=== PATIENT | male | born 1975 | race Caucasian/White ===

== ENCOUNTER 2022-07-08 07:23 | Day surgery (SDC) | payer BC, SELFPAY ==
--- NOTE | 2022-07-07 20:25 | PDOC.DSDIS_ITS ---
Date of service: 07/08/22 Time of Service: 09:35 Discharge Plan Disposition Patient Disposition: Home Condition: Good Discharge Details Reason For Visit: Umbilical herniorraphy Attending Provider: Bertram Gomez Primary Care Provider: Wil Solano Home Meds and New Rx's Prescriptions: New tramadol 50 mg tablet 50 mg PO Q8H PRN (Reason: pain) Qty: 9 0RF Rx Instructions: Take 1 tablet by mouth up to every 8 hours as needed for severe pain. You cannot drive while using this medication. Be very careful as this medication is addictive. Continued ibuprofen 200 mg tablet 200 mg PO Q6H PRN lansoprazole [Prevacid] 30 mg capsule,delayed release(DR/EC) 30 mg PO DAILY epinephrine 0.3 mg/0.3 mL auto-injector 0.3 mg IM ONCE Rx Instructions: as a single dose; may repeat once Discharge Instructions Instructions: Umbilical Hernia Repair (GEN) Additional Instructions: 1. Resume all of your medications. 2. Okay to use tylenol and ibuprofen over the counter as needed. Use [] as needed for severe pain. 3. Heating pads and cold packs are fine to use for pain. 4. Leave bandage in place for 24 hours, then remove. 5. Shower with warm soapy water. Pat dry. Use a bandaid if needed to protect your clothing. 6. No soaking or tub baths until I see you in the office. 7. No heavy lifting until I see you in the office. 8. Call the office (or go directly to the emergency room after hours) if you notice any of the following: Develop chills (warm to touch), or if you have a thermometer and your temperature is above 101 Difficulty breathing or difficultly swallowing Persistent vomiting Any bleeding ? exceeding one tablespoon 9. Call your physician if the site where your intravenous was started becomes red, swollen, painful, and warm to touch. Referrals: Bertram Gomez MD [ [facility] STAFF PHYSICIAN] - Activity:: no heavy lifting Remove Dressings/Wound Care:: 24 hours Shower/Bathe:: 24 hours Diet:: As Tolerated Discharge Orders Discharge Orders: Discharge Order (Routine); Ordered 07/07/22 Ordered By: Bertram Gomez DS: Diagnosis Discharge Diagnosis (1) Umbilical hernia: Status: Acute Asessment and Plan: We repaired the hernia with a permanent implantable mesh. You should follow the activity instructions below, and try to minimize vigorous and heavy lifting, as well as traumatic twisting movements while carrying objects.
--- NOTE | 2022-07-07 20:28 | ROE_ITS ---
Date of service: 07/08/22 Time of Service: 09:39 Operative Note Operative Note DATE OF PROCEDURE: 07/08/22 PRE-OP DIAGNOSIS: Umbilical hernia POST-OP DIAGNOSIS: other (Ventral hernia) PROCEDURE: Umbilical herniorraphy with mesh SURGEON: Bertram Gomez Refer to Anesthesia Record ESTIMATED BLOOD LOSS: 50 PATHOLOGY: none sent COMPLICATIONS: None Patient was transported to: PACU Patient's condition: stable Implants: Ventralex ST hernia patch Indications: Bertram is a 46-year-old male with a painful umbilical hernia. Findings: Supraumbilical ventral hernia Procedure Description: After the patient was induced with general anesthesia, and bilateral rectus sheath blocks were performed with ultrasound guidance by their service, I began by prepping and draping the abdomen in the usual fashion. With the patient asleep, it was easier to perform a more detailed examination. It actually feels like this is arising from the supra umbilical midline rectus sheath, rather than the true umbilical ring. I used local anesthetic to establish a field block at the skin level. I began with a midline longitudinal incision just above the umbilicus. I dissected the hernia sac down to the fascia. As previously mentioned, it did appear to arise from a hernia defect slightly above the [place] umbilical ring. I was able to reduce the hernia sac back into the peritoneum. I dissected the fascial edge clean for many adhesions. I was able to sweep the underside of the fascia with my finger. It felt free of any other adhesions. I could palpate the underside of the umbilical ring. Again, this was closed, and there was no evidence of hernia here. Next, I delivered a small Ventralex hernia patch into the subfascial position. I fixed the tabs to the overlying fascia with interrupted stitches. Next, I obliterated the fascial defect with interrupted Prolenes. I irrigated the surgical field. It was hemostatic. Next, I closed the subcutaneous tissue with interrupted Vicryl's. I did pexied the underside of the umbilicus a bit cephalad to help with cosmesis. I closed the skin with interrupted Monocryl stitches, and I applied bandages.
[2022-07-08] VITALS (7 sets, daily range): BP systolic 100–117; BP diastolic 62–84; PULSE 56–66; RESP 10–16; TEMP 36.1–36.5; O2SAT 98–100; BMI 26.3
[2022-07-08] MEDS: Gabapentin 300 MG CAP 600 MG PO (08:01)
[2022-07-08] MEDS: Celecoxib 200 MG CAP PO (08:01)
[2022-07-08] MEDS: Acetaminophen 500 MG TAB 1000 MG PO (08:01)
--- NOTE | 2022-07-08 08:08 | W.ANESPRE ---
General Info Date of Service Date Performed: 07/08/22 Height: 5 ft 9 in Weight: 80.9 kg Body Mass Index (BMI): 26.3 Surgical Procedure: Operation Date: 07/08/22 08:40 Proposed Procedure Side Surgeon p Herniorrhaphy Umbilical w/Mesh Bertram Gomez MD Meds Allergies and Home Medications Allergies Allergy/AdvReac Type Severity Reaction Status Date / Time bees Allergy Severe Anaphylaxis Uncoded 06/25/22 13:17 Home Medication Medication Instructions Recorded epinephrine 0.3 mg/0.3 mL 0.3 mg IM ONCE 02/17/22 injection, auto-injector ibuprofen 200 mg tablet 200 mg PO Q6H PRN 02/25/22 lansoprazole 30 mg capsule,delayed 30 mg PO DAILY 02/25/22 release (Prevacid) Current Visit Medications: Current Medications Generic Name Dose Route Start Last Admin Trade Name Freq PRN Reason Stop Dose Admin Acetaminophen 1,000 mg 07/08/22 06:00 07/08/22 08:01 Acetaminophen 500 Mg Tab PO 08/03/22 23:59 1,000 mg PREOP JOSEPH Administration Celecoxib 200 mg 07/08/22 06:00 07/08/22 08:01 Celecoxib 200 Mg Cap PO 08/03/22 23:59 200 mg PREOP JOSEPH Administration Gabapentin 600 mg 07/08/22 06:00 07/08/22 08:01 Gabapentin 300 Mg Cap PO 08/03/22 23:59 600 mg PREOP JOSEPH Administration Ringer's Solution 1,000 mls @ 80 mls/hr 07/08/22 06:00 IV 08/03/22 23:59 INFUSION JOSEPH Cefazolin Sodium/Dextrose 2 gm in 50 mls @ 100 mls/hr 07/08/22 06:00 Ancef Duplex IVPB 08/03/22 23:59 PREOP JOSEPH IV Miscellaneous Supplies 1 each 07/08/22 06:00 Iv Access IV 08/03/22 23:59 DIRECTED JOSEPH Morphine Sulfate 2 mg 07/07/22 20:29 Morphine 4 Mg/Ml Syr IVP Q1H PRN PRN Sodium Chloride 0 ml 07/08/22 06:00 Normal Saline Flush 10 Ml Syr IV 08/03/22 23:59 PRN PRN Sodium Chloride 0 ml 07/08/22 06:00 Normal Saline 10 Ml Vial IJ 08/03/22 23:59 DIRECTED PRN Sterile Water 0 ml 07/08/22 06:00 Water,Injection,Sterile 10 Ml Vial IJ 08/03/22 23:59 DIRECTED PRN Tramadol HCl 50 mg 07/07/22 20:29 Tramadol 50 Mg Tab PO Q6H PRN PRN Pain PFSH Active Problems Active Problems: Problem Status Onset Code Umbilical hernia K42.9 Medical History Medical History GERD (gastroesophageal reflux disease) Tobacco use Medical History Comments:: pt smokes @ 10 cigarettes a day Surgical History Surgical History History of recent dental procedure History of tonsillectomy Tobacco Smoking/Tobacco Use Status: Current every day Tobacco Type: cigarettes Smoking packs per day: 0.5 Smoking cigarettes per day: 10.0 Years smoked: 25 Smoking pack-years: 12.50 Alcohol Alcohol Intake: current Alcohol intake frequency: 0-2 drinks per day Alcohol type: beer Substance Use Substance use: Rarely Substance use type: marijuana Vital Signs and Lab Results Vital Signs Most Recent Vital Signs in EMR: Most Recent Vital Signs Temp Pulse Resp BP Pulse Ox 36.5 C 64 16 117/84 100 07/08/22 07:55 07/08/22 07:55 07/08/22 07:55 07/08/22 07:55 07/08/22 07:55 Lab Results Blood Type / Crossmatch: No Data to Display Complete Blood Count: No Data to Display Complete Metabolic Panel: No Data to Display Liver Function Panel: No Data to Display Coagulation Panel: No Data to Display Cardiac Panel: No Data to Display Arterial Blood Gas: No Data to Display Venous Blood Gas: No Data to Display Pancreas Panel: No Data to Display Thyroid Panel: No Data to Display Infectious Disease: No Data to Display Blood Cultures: No Data to Display Toxicology Panel: No Data to Display Anesthesia Assessment and Plan Anesthesia History Personal History: No History of General Anesthesia Family History: No Family History of Anesthesia Complications Exercise Tolerance Exercise Tolerance: Metabolic Equivalents>4 Pertinent Negatives Pertinent Negatives: No Symptoms of GERD (Controlled on medication), No Major Cardiovascular Symptoms or Complaints and No Major Pulmonary Symptoms or Complaints Cardiac & Pulmonary Exam Cardiac Exam: Normal S1/S2 Heart Sounds Pulmonary Exam: Clear Bilateral Breath Sounds Implantable Cardiac Device Does patient have a Pacemaker or an ICD?: No Airway Exam Known Difficult Airway: No Mallampati Class: 1 Mouth Opening: Normal (> 3cm) Thyromental Distance: Greater than 3 cm Facial Hair: Full [place] Neck Range of Motion: Full ROM Neck Circumference: Normal Teeth Condition: Normal Dentition ASA Classification ASA Score: ASA 2 Emergency Case?: No NPO Status NPO Status: NPO Clears >2 hours, Solids >8 hours Anesthesia Plan Resuscitation Status: Full Code Anesthesia Technique: General Anesthesia Airway Planned: LMA Pain Management: Surgeon and patient request nerve block Monitors Used: Standard Monitors and SedLine
[2022-07-08] MEDS: Lactated Ringers 1,000 ML 80 ML IV (08:21)
[2022-07-08] MEDS: ceFAZolin 2 GM/50 ML BAG IVPB (08:39)
--- NOTE | 2022-07-08 09:08 | W.ANESNERVE ---
Nerve Block Single Injection Procedure Date and Time Date Performed: 07/08/22 Procedure Start: 08:52 Location Where Procedure Performed Procedure Location: Operating Room Procedure Stop: 08:58 Reason Performed: Postoperative Analgesia Requesting Provider: Bertram Gomez Timeout Performed Timeout Performed: Yes Monitoring Used ECG, Blood Pressure, SpO2, ETCO2 and See EMR for corresponding vital signs Sterility Sterility: Hand Hygiene, Surgical Cap, Surgical Mask, Sterile Gloves and Chlorhexidine Sedation Given During Procedure Sedation Given (Indicate Dose Given): No Sedation given Patient Mental Status Patient Mental Status: Performed under general anesthesia Nerve Block 1st Nerve Block: Laterality: Bilateral Block Type: Rectus Sheath (Bilateral) Ultrasound Image Saved?: Yes Needle / Catheter Used: 100mm SonoPlex II Local Anesthetic Bolus (Indicate Dose Given): Lidocaine used for local infiltration of skin, Injected in 3-5ml increments after negative blood aspiration, Half of Total block solution given into each side and Bupivacaine 0.375% Dose:: 20 Additives (Indicate Dose Given): None Ultrasound: Sterile probe cover and gel used (Image saved and sent to PACS) Nerve Stimulator: Not Used Paresthesia: None Post Procedure Pain score (0-10): 0 Procedure Tolerated: No Complications and Patient tolerated well Procedure Outcome: Successful Performed By: Nely Rodriguez Supervised By: Palmer Cheek
[2022-07-08] MEDS: Bupivacaine 0.25% Pres-Free 30 ML VIAL ×2 (09:17→09:23)
--- NOTE | 2022-07-08 11:50 | W.ANESPOSTOP ---
Postoperative Evaluation Date, Time and Location Date Performed: 07/08/22 Time Performed: 10:45 Patient Location: Day Surgery Unit Vital Signs Most Recent Imported Vital Signs: Most Recent Vital Signs Temp Pulse Resp BP Pulse Ox 36.2 C L 56 L 16 115/79 99 07/08/22 10:48 07/08/22 10:48 07/08/22 10:48 07/08/22 10:48 07/08/22 10:48 Pain Score Most Recent Pain Score: Most Recent Pain Score Pain Level 0 07/08/22 10:48 Assessment Mental Status: Awake (Alert & Oriented to Patient Baseline) Airway and Respiratory Function: Patent airway with normal (patient baseline) respiratory exam Cardiovascular Function: Hemodynamically Stable Hydration Status: Adequately Hydrated Nausea & Vomiting: No Nausea or Vomiting Pain: Pt. Denies Any Pain Peripheral Nerve Block: Regional nerve block not resolved at time of post operative discharge
== END 2022-07-08 11:05 | disposition home or self-care (01) ==
PROVIDERS: PCP Family Medicine; Visit Provider Surgery
PROC: (CPT 49591; principal; 2022-07-08 08:30)
DX: K43.9 Ventral hernia without obstruction or gangrene (principal)
CPT/HCPCS: 49591; 76942; C1781; J0690; J1100; J1885; J2250; J2405; J2704

== ENCOUNTER 2022-12-12 12:01 | Outpatient (CLI) | payer BC, SELFPAY ==
--- NOTE | 2022-12-12 | DI.RAD_ITS ---
Exam(s) XR THUMB RT EXAM: XR THUMB RT CLINICAL HISTORY: RT THUMB PAIN, [id number]. TECHNIQUE: 2D digital imaging was performed of the right finger. Three views were obtained. PA/AP, oblique, and lateral views were obtained. COMPARISON: No exams were available for comparison FINDINGS: BONES: No acute fracture is present. No bony destructive lesion is seen. JOINTS: No dislocation present. SOFT TISSUE: There tiny density seen adjacent to the MCP and AP joint which appear chronic. IMPRESSION: No evidence of acute fracture, dislocation, or subluxation. DATA REPOSITORY: RADIATION DOSE DELIVERED:
== END 2022-12-12 12:21 ==
LOC: DI 12:01
PROVIDERS: PCP Family Medicine; Visit Provider Nurse Practitioner Family
DX: M79.644 Pain in right finger(s) (principal)
CPT/HCPCS: 73140